=== PATIENT | male | born 1955 | race Caucasian/White ===

== ENCOUNTER 2021-07-31 11:20 | Emergency (ER) | payer MEDICARE ==
[2021-07-31 11:31] VITALS: BP 125/88; PULSE 93
[2021-07-31] MEDS: Ondansetron 4 MG Tab.DIS ONE (11:57)
[2021-07-31] MEDS: Ondansetron 4 MG Tab.DIS PO ONE (11:57)
[2021-07-31] MEDS ORDERED: Acetaminophen/HYDROcodone 325-5 MG Tab ONE (13:00)
== END 2021-07-31 13:10 | disposition home or self-care (01) ==
LOC: LB.ED 11:20
DX: K85.20 Alcohol induced acute pancreatitis without necrosis or infection (principal); I48.91 Unspecified atrial fibrillation; I10 Essential (primary) hypertension; Z79.899 Other long term (current) drug therapy; Z79.82 Long term (current) use of aspirin; Z79.01 Long term (current) use of anticoagulants
CPT/HCPCS: 36415; 71250; 74176; 80053; 81001; 85025; 85610; 99284-25; A9270-GY; Q0162

== ENCOUNTER 2022-12-09 10:25 | Emergency (ER) | payer MEDICARE ==
[2022-12-09 11:07] LABS: HEMOGLOBIN 15.7 g/dL (13.0-18.0); MEAN CORPUSCULAR HEMOGLOBIN 36.1 pg (27.0-32.0); MEAN CORPUSCULAR HGB CONC 34.1 g/dL (31.0-35.0); MEAN CORPUSCULAR VOLUME 106 fL (76-96); MEAN PLATELET VOLUME 8.8 fL (6.0-10.0); PLATELET COUNT,PLT 164 K/uL (150-400); RED BLOOD CELL COUNT 4.35 M/uL (4.50-6.50); WHITE BLOOD CELL COUNT,WBC 11.6 K/uL (4.0-11.0)
[2022-12-09 11:26] LABS: INR 2.3 (1.0-3.5); PTT,PARTIAL THROMBOPLSTIN TIME 35.9 SECONDS (24.4-33.2)
[2022-12-09 11:28] LABS: PROTHROMBIN TIME 22.8 sec (9.0-11.5)
[2022-12-09 11:34] LABS: A/G RATIO 0.9 (0.8-2.0); ALANINE AMINOTRANSFERASE,ALT 31 U/L (12-78); ALBUMIN 3.3 g/dL (3.4-5.0); ALKALINE PHOSPHATASE 110 U/L (46-116); ANION GAP 8.6 mmol/L (5.0-15.0); ASPARTATE AMNIOTRANSFERASE,AST 18 U/L (15-37); BILIRUBIN TOTAL 0.7 mg/dL (0.0-1.0); BLOOD UREA NITROGEN,BUN 24 mg/dL (8-26); BUN/CREATININE RATIO 17.9 (6-25); CARBON DIOXIDE,CO2 31.4 mmol/L (21.0-32.0); CHLORIDE,CL 102 mmol/L (98-107); CREATININE 1.34 mg/dL (0.70-1.30); ESTIMATED GFR 58 mL/min (>60); GLUCOSE RANDOM 140 mg/dL (74-100); SODIUM,NA 138 mmol/L (136-145); TROPONIN I HIGH SENSITIVITY 10.1 pg/ml (<=60.4)
[2022-12-09] MEDS ORDERED: Furosemide 40 MG/4 ML VIAL IVPUSH ONE (11:55)
[2022-12-09] MEDS ORDERED: Furosemide 40 MG/4 ML VIAL ONE (11:59)
[2022-12-09] MEDS ORDERED: Furosemide 20 MG/2 ML VIAL IVPUSH ONE (12:04)
[2022-12-09] MEDS ORDERED: Acetaminophen 500 MG Tab PO ONE (12:12)
[2022-12-09] MEDS ORDERED: Acetaminophen 500 MG Tab ONE (12:15)
[2022-12-09] MEDS ORDERED: Doxycycline 100 MG Cap ONE (14:00)
[2022-12-09 14:44] VITALS: BP 141/99; PULSE 83
== END 2022-12-09 14:18 | disposition home or self-care (01) ==
LOC: LB.ED 10:25
DX: I11.0 Hypertensive heart disease with heart failure (principal); I50.9 Heart failure, unspecified; I48.91 Unspecified atrial fibrillation; Z79.899 Other long term (current) drug therapy; Z79.01 Long term (current) use of anticoagulants; Z79.82 Long term (current) use of aspirin
CPT/HCPCS: 36415; 71045; 80053; 83880; 84484; 85025; 85610; 85730; 93005; 96374; 99284-25; A9270-GY; J1940

== ENCOUNTER 2022-12-11 05:25 | Emergency (ER) | payer MEDICARE ==
[2022-12-11] MEDS ORDERED: Sodium Chloride 0.9% 10 ML Syringe FLUSH PRN (06:20)
[2022-12-11 06:28] LABS: BASOPHILS ABSOLUTE AUTO 0.08 K/uL (0.02-0.10); BASOPHILS PERCENT AUTO 0.7 % (0.0-0.5); EOSINOPHILS ABSOLUTE AUTO 0.26 K/uL (0.04-0.40); EOSINOPHILS PERCENT AUTO 2.3 % (1.0-5.0); HEMATOCRIT 46.7 % (40.0-54.0); HEMOGLOBIN 15.8 g/dL (13.0-18.0); LYMPHOCYTES ABSOLUTE AUTO 1.11 K/uL (1.50-4.00); LYMPHOCYTES PERCENT AUTO 9.9 % (20.0-40.0); MEAN CORPUSCULAR HEMOGLOBIN 35.5 pg (27.0-32.0); MEAN CORPUSCULAR HGB CONC 33.8 g/dL (31.0-35.0); MEAN CORPUSCULAR VOLUME 105 fL (76-96); MEAN PLATELET VOLUME 9.2 fL (6.0-10.0); MONOCYTES ABSOLUTE AUTO 0.87 K/uL (0.20-0.80); MONOCYTES PERCENT AUTO 7.7 % (3.0-10.0); NEUTROPHILS ABSOLUTE AUTO 8.93 K/uL (2.00-7.50); NEUTROPHILS PERCENT AUTO 79.4 % (45.0-70.0); PLATELET COUNT,PLT 172 K/uL (150-400); RED BLOOD CELL COUNT 4.45 M/uL (4.50-6.50); RED CELL DISTRIBUTION WIDTH 15.2 % (11.0-16.0); WHITE BLOOD CELL COUNT,WBC 11.3 K/uL (4.0-11.0)
[2022-12-11 06:44] LABS: A/G RATIO 0.7 (0.8-2.0); ALANINE AMINOTRANSFERASE,ALT 28 U/L (12-78); ALBUMIN 3.2 g/dL (3.4-5.0); ANION GAP 11.9 mmol/L (5.0-15.0); ASPARTATE AMNIOTRANSFERASE,AST 15 U/L (15-37); BLOOD UREA NITROGEN,BUN 23 mg/dL (8-26); BUN/CREATININE RATIO 15.5 (6-25); CALCIUM 9.3 mg/dL (8.5-10.1); CARBON DIOXIDE,CO2 29.9 mmol/L (21.0-32.0); CHLORIDE,CL 99 mmol/L (98-107); CREATININE 1.48 mg/dL (0.70-1.30); EST CRCL DRUG DOSING (CG) 50.88 mL/min; ESTIMATED GFR 51 mL/min (>60); GLUCOSE RANDOM 131 mg/dL (74-100); INR 2.4 (1.0-3.5); POTASSIUM,K 3.8 mmol/L (3.5-5.1); PROTEIN TOTAL,TP 7.6 g/dL (6.4-8.2); PTT,PARTIAL THROMBOPLSTIN TIME 44.1 SECONDS (24.4-33.2); SODIUM,NA 137 mmol/L (136-145)
[2022-12-11 07:28] LABS: PROTHROMBIN TIME 24.2 sec (9.0-11.5)
[2022-12-11] MEDS: DAPTOmycin 500 MG Vial IVPUSH ONE (09:15)
[2022-12-11 09:33] VITALS: BP 138/89; PULSE 94
== END 2022-12-11 09:30 | disposition home or self-care (01) ==
LOC: LB.ED 05:25
DX: L03.115 Cellulitis of right lower limb (principal); I48.91 Unspecified atrial fibrillation; I10 Essential (primary) hypertension; J44.9 Chronic obstructive pulmonary disease, unspecified; E66.9 Obesity, unspecified; Z68.41 Body mass index [BMI] 40.0-44.9, adult; Z79.01 Long term (current) use of anticoagulants; Z87.891 Personal history of nicotine dependence; Z79.899 Other long term (current) drug therapy; Z79.82 Long term (current) use of aspirin
CPT/HCPCS: 36415; 73700-RT; 80053; 83880; 85025; 85610; 85730; 93005; 96374; 99284-25; J0878

== ENCOUNTER 2023-03-25 10:22 | Emergency (ER) | payer MEDICARE ==
[2023-03-25 10:49] LABS: BASOPHILS ABSOLUTE AUTO 0.11 K/uL (0.02-0.10); BASOPHILS PERCENT AUTO 1.2 % (0.0-0.5); EOSINOPHILS ABSOLUTE AUTO 0.15 K/uL (0.04-0.40); EOSINOPHILS PERCENT AUTO 1.6 % (1.0-5.0); HEMATOCRIT 45.8 % (40.0-54.0); HEMOGLOBIN 14.7 g/dL (13.0-18.0); LYMPHOCYTES PERCENT AUTO 10.6 % (20.0-40.0); MEAN CORPUSCULAR HEMOGLOBIN 31.3 pg (27.0-32.0); MEAN CORPUSCULAR HGB CONC 32.1 g/dL (31.0-35.0); MEAN CORPUSCULAR VOLUME 98 fL (76-96); MEAN PLATELET VOLUME 9.4 fL (6.0-10.0); MONOCYTES ABSOLUTE AUTO 0.75 K/uL (0.20-0.80); MONOCYTES PERCENT AUTO 7.9 % (3.0-10.0); NEUTROPHILS ABSOLUTE AUTO 7.46 K/uL (2.00-7.50); NEUTROPHILS PERCENT AUTO 78.7 % (45.0-70.0); PLATELET COUNT,PLT 180 K/uL (150-400); RED BLOOD CELL COUNT 4.69 M/uL (4.50-6.50); WHITE BLOOD CELL COUNT,WBC 9.5 K/uL (4.0-11.0)
[2023-03-25 11:04] LABS: INR 2.1 (1.0-3.5)
[2023-03-25 11:09] LABS: PROTHROMBIN TIME 21.4 sec (9.0-11.5)
[2023-03-25 11:14] LABS: BASE EXCESS VENOUS 3.6 mm/L (-2-3); BICARBONATE,VENOUS 27.7 mmol/L (23.0-28.0); PCO2 VENOUS 40.4 mm/Hg (41-51); PH,VENOUS 7.44 (7.31-7.41)
[2023-03-25 11:16] LABS: A/G RATIO 0.8 (0.8-2.0); ALBUMIN 3.3 g/dL (3.4-5.0); ANION GAP 10.8 mmol/L (5.0-15.0); BILIRUBIN TOTAL 1.1 mg/dL (0.0-1.0); CARBON DIOXIDE,CO2 27.1 mmol/L (21.0-32.0); CREATININE 1.16 mg/dL (0.70-1.30); EST CRCL DRUG DOSING (CG) 62.93 mL/min; POTASSIUM,K 3.9 mmol/L (3.5-5.1); PROTEIN TOTAL,TP 7.4 g/dL (6.4-8.2)
[2023-03-25] MEDS: Potassium Chloride 20 MEQ Tab.ER ONE (13:13)
[2023-03-25] MEDS: Potassium Chloride 20 MEQ Tab.ER PO ONE (13:14)
[2023-03-25] MEDS: Bumetanide 1 MG/4 ML MDV IVPUSH ONE (13:14)
[2023-03-25 17:22] VITALS: BP 142/85; PULSE 84
== END 2023-03-25 13:34 | disposition home or self-care (01) ==
LOC: LB.ED 10:22
DX: E87.70 Fluid overload, unspecified (principal); R60.9 Edema, unspecified; I48.91 Unspecified atrial fibrillation; I10 Essential (primary) hypertension; J44.9 Chronic obstructive pulmonary disease, unspecified; E66.9 Obesity, unspecified; Z68.41 Body mass index [BMI] 40.0-44.9, adult; Z79.01 Long term (current) use of anticoagulants; Z79.82 Long term (current) use of aspirin; Z79.899 Other long term (current) drug therapy
CPT/HCPCS: 36415; 71250; 80053; 82803; 83605; 83880; 84484; 85025; 85610; 85730; 93005; 99285; A9270-GY

== ENCOUNTER 2023-11-14 10:24 | Emergency (ER) | payer MEDICARE ==
[2023-11-14] MEDS: predniSONE 20 MG Tab PO ONE (11:09)
[2023-11-14 11:25] LABS: BASOPHILS ABSOLUTE AUTO 0.11 K/uL (0.02-0.10); BASOPHILS PERCENT AUTO 1.1 % (0.0-0.5); EOSINOPHILS ABSOLUTE AUTO 0.22 K/uL (0.04-0.40); EOSINOPHILS PERCENT AUTO 2.2 % (1.0-5.0); HEMATOCRIT 42.1 % (40.0-54.0); HEMOGLOBIN 13.3 g/dL (13.0-18.0); LYMPHOCYTES ABSOLUTE AUTO 1.16 K/uL (1.50-4.00); LYMPHOCYTES PERCENT AUTO 11.4 % (20.0-40.0); MEAN CORPUSCULAR HGB CONC 31.6 g/dL (31.0-35.0); MEAN CORPUSCULAR VOLUME 92 fL (76-96); MEAN PLATELET VOLUME 9.3 fL (6.0-10.0); MONOCYTES ABSOLUTE AUTO 0.54 K/uL (0.20-0.80); MONOCYTES PERCENT AUTO 5.3 % (3.0-10.0); NEUTROPHILS ABSOLUTE AUTO 8.11 K/uL (2.00-7.50); PLATELET COUNT,PLT 194 K/uL (150-400); RED BLOOD CELL COUNT 4.58 M/uL (4.50-6.50); RED CELL DISTRIBUTION WIDTH 16.9 % (11.0-16.0); WHITE BLOOD CELL COUNT,WBC 10.1 K/uL (4.0-11.0)
[2023-11-14] MEDS: Albuterol/Ipratropium 3.0-0.5 MG/3 ML Neb Soln NEB PRN (11:25)
[2023-11-14] MEDS: Albuterol/Ipratropium 3.0-0.5 MG/3 ML Neb Soln ONE (11:40)
[2023-11-14 11:43] LABS: INR 2.4 (1.0-3.5); PTT,PARTIAL THROMBOPLSTIN TIME 34.5 SECONDS (24.4-33.2)
[2023-11-14 11:45] LABS: PROTHROMBIN TIME 24.2 sec (9.0-11.5)
[2023-11-14 11:49] LABS: A/G RATIO 0.8 (0.8-2.0); ALBUMIN 3.1 g/dL (3.4-5.0); ANION GAP 14.3 mmol/L (5.0-15.0); BILIRUBIN TOTAL 0.7 mg/dL (0.0-1.0); BUN/CREATININE RATIO 13.9 (6-25); CALCIUM 8.1 mg/dL (8.5-10.1); CARBON DIOXIDE,CO2 25.6 mmol/L (21.0-32.0); CREATININE 1.22 mg/dL (0.70-1.30); EST CRCL DRUG DOSING (CG) 59.01 mL/min; POTASSIUM,K 3.9 mmol/L (3.5-5.1); PROTEIN TOTAL,TP 6.8 g/dL (6.4-8.2); TROPONIN I HIGH SENSITIVITY 19.5 pg/ml (<=60.4)
[2023-11-14] MEDS: Azithromycin 500 MG Tab PO ONE (12:47)
[2023-11-14 13:16] VITALS: BP 160/90; PULSE 79
== END 2023-11-14 13:10 | disposition hospice, home (50) ==
LOC: LB.ED 10:24
DX: J40 Bronchitis, not specified as acute or chronic (principal); I10 Essential (primary) hypertension; I48.91 Unspecified atrial fibrillation; Z87.891 Personal history of nicotine dependence; Z79.899 Other long term (current) drug therapy; Z79.01 Long term (current) use of anticoagulants; Z79.82 Long term (current) use of aspirin
CPT/HCPCS: 36415; 71045; 80053; 83880; 84145; 84484; 85025; 85610; 85730; 93005; 94640; 99283; 99285; A9270; J7512; J7620

== ENCOUNTER 2024-01-08 12:56 | Emergency (ER) | payer MEDICARE ==
[2024-01-08 13:47] VITALS: BP 130/74; PULSE 83
== END 2024-01-08 14:20 | disposition home or self-care (01) ==
LOC: LB.ED 12:56
DX: L03.116 Cellulitis of left lower limb (principal); I10 Essential (primary) hypertension; I48.91 Unspecified atrial fibrillation; Z79.2 Long term (current) use of antibiotics; Z79.51 Long term (current) use of inhaled steroids; Z79.82 Long term (current) use of aspirin; Z79.01 Long term (current) use of anticoagulants; Z79.899 Other long term (current) drug therapy
CPT/HCPCS: 99283

== ENCOUNTER 2024-12-08 11:50 | Emergency (ER) | payer MEDICARE ==
[2024-12-08 13:35] LABS: BASOPHILS ABSOLUTE AUTO 0.15 K/uL (0.02-0.10); BASOPHILS PERCENT AUTO 1.7 % (0.0-0.5); EOSINOPHILS ABSOLUTE AUTO 0.19 K/uL (0.04-0.40); EOSINOPHILS PERCENT AUTO 2.2 % (1.0-5.0); LYMPHOCYTES ABSOLUTE AUTO 1.13 K/uL (1.50-4.00); LYMPHOCYTES PERCENT AUTO 13.1 % (20.0-40.0); MEAN PLATELET VOLUME 9.0 fL (6.0-10.0); MONOCYTES ABSOLUTE AUTO 0.68 K/uL (0.20-0.80); MONOCYTES PERCENT AUTO 7.9 % (3.0-10.0); NEUTROPHILS ABSOLUTE AUTO 6.47 K/uL (2.00-7.50); NEUTROPHILS PERCENT AUTO 75.1 % (45.0-70.0); PLATELET COUNT,PLT 209 K/uL (150-400); RED BLOOD CELL COUNT 5.21 M/uL (4.50-6.50); RED CELL DISTRIBUTION WIDTH 18.1 % (11.0-16.0); WHITE BLOOD CELL COUNT,WBC 8.6 K/uL (4.0-11.0)
[2024-12-08 14:04] LABS: BLOOD UREA NITROGEN,BUN 22.0 mg/dL (8-26); CARBON DIOXIDE,CO2 35.1 mmol/L (21.0-32.0); CHLORIDE,CL 98.0 mmol/L (98-107); CREATININE 1.39 mg/dL (0.70-1.30); EST CRCL DRUG DOSING (CG) 51.06 mL/min; ESTIMATED GFR 55.0 mL/min (>60); GLUCOSE RANDOM 160.0 mg/dL (74-100); POTASSIUM,K 4.1 mmol/L (3.5-5.1); PRO B-TYPE NATRIUR PEPT,BNPPRO 741.0 pg/mL (0-125); SODIUM,NA 139.0 mmol/L (136-145)
[2024-12-08 14:55] VITALS: BP 128/60; PULSE 71
== END 2024-12-08 14:26 | disposition home or self-care (01) ==
LOC: LB.ED 11:50
DX: S81.801A Unspecified open wound, right lower leg, initial encounter (principal); S81.802A Unspecified open wound, left lower leg, initial encounter; E87.70 Fluid overload, unspecified; I11.0 Hypertensive heart disease with heart failure; I50.9 Heart failure, unspecified; I48.91 Unspecified atrial fibrillation; J44.9 Chronic obstructive pulmonary disease, unspecified; Z79.01 Long term (current) use of anticoagulants; Z79.899 Other long term (current) drug therapy; Z79.82 Long term (current) use of aspirin; X58.XXXA Exposure to other specified factors, initial encounter
CPT/HCPCS: 36415; 80048; 83880; 85025; 99284

== ENCOUNTER 2025-05-06 16:15 | Emergency (ER) | payer MEDICARE ==
[2025-05-06] MEDS: Nitroglycerin 0.4 MG Tab.SL SL PRN (16:29)
[2025-05-06] MEDS ORDERED: Sodium Chloride 0.9% 10 ML Syringe FLUSH PRN (16:29)
[2025-05-06 16:44] LABS: MEAN PLATELET VOLUME 10.0 fL (6.0-10.0); PLATELET COUNT,PLT 235 K/uL (150-400); RED BLOOD CELL COUNT 5.41 M/uL (4.50-6.50); RED CELL DISTRIBUTION WIDTH 17.9 % (11.0-16.0); WHITE BLOOD CELL COUNT,WBC 12.3 K/uL (4.0-11.0)
[2025-05-06] MEDS: fentaNYL 100 MCG/2 ML SDV IVPUSH ONE ×2 (16:51→18:38)
[2025-05-06 16:59] LABS: BAND PERCENT MAN 0.0 %; BASOPHILS PERCENT MAN 0.0 % (0.0-0.5); EOSINOPHILS PERCENT MAN 3.0 % (1.0-5.0); LYMPHOCYTES PERCENT MAN 9.0 % (20.0-40.0); MONOCYTES PERCENT MAN 7.0 % (3.0-10.0); SEG NEUTROPHILS PERCENT MAN 91.0 % (45.0-70.0)
[2025-05-06 17:12] LABS: A/G RATIO 0.8 (0.8-2.0); ALANINE AMINOTRANSFERASE,ALT 45.0 U/L (12-78); ASPARTATE AMNIOTRANSFERASE,AST 29.0 U/L (15-37); BILIRUBIN TOTAL 0.6 mg/dL (0.0-1.0); BLOOD UREA NITROGEN,BUN 29.0 mg/dL (8-26); CARBON DIOXIDE,CO2 30.9 mmol/L (21.0-32.0); CHLORIDE,CL 99.0 mmol/L (98-107); CREATININE 1.26 mg/dL (0.70-1.30); EST CRCL DRUG DOSING (CG) 56.33 mL/min; ESTIMATED GFR 61.0 mL/min (>60); GLUCOSE RANDOM 172.0 mg/dL (74-100); POTASSIUM,K 3.8 mmol/L (3.5-5.1); PROTEIN TOTAL,TP 8.0 g/dL (6.4-8.2); SODIUM,NA 140.0 mmol/L (136-145)
[2025-05-06 17:15] LABS: INR 2.0 (1.0-3.5); PTT,PARTIAL THROMBOPLSTIN TIME 27.1 SECONDS (24.4-33.2)
[2025-05-06 17:31] LABS: TROPONIN I HIGH SENSITIVITY 818.0 pg/ml (<=60.4)
[2025-05-06] MEDS: Heparin Sodium 5,000 Units/ML Vial IVPUSH ONE ×2 (17:53→18:44)
[2025-05-06 18:50] VITALS: PULSE 81
[2025-05-06 19:21] VITALS: BP 157/91
== END 2025-05-06 19:45 ==
LOC: LB.ED 16:15
DX: I21.4 Non-ST elevation (NSTEMI) myocardial infarction (principal); I48.91 Unspecified atrial fibrillation; I10 Essential (primary) hypertension; J44.9 Chronic obstructive pulmonary disease, unspecified; Z79.899 Other long term (current) drug therapy; Z79.01 Long term (current) use of anticoagulants; Z79.82 Long term (current) use of aspirin
CPT/HCPCS: 36415; 71045; 80053; 83735; 84484; 85025; 85379; 85610; 85730; 93005; 96365; 96368; 96375; 96376; 99285-25; A9270-GY; J1644; J2305; J3010